=== PATIENT | male | born 1980 | race Caucasian/White ===

== ENCOUNTER 2016-10-12 22:44 | Emergency (ER) | payer OTHER ==
[~2016-10-12] VITALS: Ht 175.3 cm; Wt 72.0 kg
[2016-10-13] MEDS ORDERED: KETOROLAC 60MG/2ML VIAL IM ONE (02:00)
[2016-10-13 03:08] VITALS: BP 134/85
== END 2016-10-13 04:07 | disposition home or self-care (01) ==
LOC: ER 22:44
DX: K62.89 Other specified diseases of anus and rectum (principal)
CPT/HCPCS: 82270; 96372; 99283; J1885

== ENCOUNTER 2017-03-27 10:27 | Emergency (ER) | payer OTHER ==
[~2017-03-27] VITALS: Ht 160 cm; Wt 77.0 kg
[2017-03-27] MEDS ORDERED: SODIUM CHLORIDE 0.9% 2,000 ML IV ONE (13:31)
[2017-03-27] MEDS ORDERED: ACETAMINOPHEN 325MG TABLET PO STA (13:31)
[2017-03-27] MEDS ORDERED: KETOROLAC 30MG/ML VIAL IV STA (13:31)
[2017-03-27 14:01] LABS: HEMOGLOBIN. 14.1 g/dL (14.0-18.0); MEAN CORPUSCULAR HEMOGLOBIN 29.1 pg (28.0-32.0); MEAN CORPUSCULAR VOLUME 84.6 fL (80.0-94.0); MEAN PLATELET VOLUME 8.7 fl (7.4-10.4); PLATELET 258 x1000/uL (130-400); RED BLOOD CELL COUNT 4.84 mill/uL (4.7-6.1)
[2017-03-27 14:10] LABS: CHLORIDE 102 mEq/L (98-107)
[2017-03-27 14:18] LABS: CARBON DIOXIDE 24 mEq/L (21-32)
[2017-03-27 14:32] LABS: PLATELET ESTIMATE NORMAL
[2017-03-27 18:01] VITALS: BP 103/69
== END 2017-03-27 18:07 | disposition home or self-care (01) ==
LOC: ER 10:31
DX: J11.1 Influenza due to unidentified influenza virus with other respiratory manifestations (principal); R00.0 Tachycardia, unspecified
CPT/HCPCS: 36415; 71010; 80053; 85025; 87804; 93005; 96361; 96374; 99285; J1885; J7030; Z7610